=== PATIENT | male | born 1960 | race African-American/Black ===

== ENCOUNTER 2016-08-21 16:05 | Emergency (ER) | payer OTHER ==
[~2016-08-21] VITALS: Ht 182.9 cm; Wt 110.6 kg
[2016-08-21] MEDS ORDERED: NAPROSYN500 MG PO (18:51)
[2016-08-21 19:10] VITALS: BP 133/73
== END 2016-08-21 19:32 | disposition home or self-care (01) ==
LOC: EME 16:05
DX: S80.11XA Contusion of right lower leg, initial encounter (principal); V03.90XA Pedestrian on foot injured in collision with car, pick-up truck or van, unspecified whether traffic or nontraffic accident, initial encounter
CPT/HCPCS: 73502; 73564; 73590; 73630; 99281; 99284